=== PATIENT | male | born 1995 | race Caucasian/White ===

== ENCOUNTER 2016-05-04 07:23 | Inpatient (IN) | payer OTHER ==
[~2016-05-04] VITALS: Ht 177.8 cm; Wt 79.4 kg
[2016-05-04 13:15] VITALS: BP 115/83
[2016-05-04] MEDS ORDERED: diphenhydrAMINE 50 MG CAPSULE PO PRN (14:15)
[2016-05-04] MEDS ORDERED: LOPERAMIDE HCL 2 MG CAPSULE PO PRN ×2 (14:15)
[2016-05-04] MEDS ORDERED: MAGNESIUM HYDROXIDE 30 ML LIQUID UDC PO PRN (14:15)
[2016-05-04] MEDS ORDERED: CLONIDINE HCL 0.1 MG TABLET PO PRN (14:15)
[2016-05-04] MEDS ORDERED: ONDANSETRON ODT 4 MG TAB.RAPDIS SL PRN (14:15)
[2016-05-04] MEDS ORDERED: DICYCLOMINE HCL 20 MG TABLET PO PRN (14:15)
[2016-05-04] MEDS ORDERED: PROMETHAZINE HCL 25 MG/1 ML VIAL IM PRN (14:15)
[2016-05-04] MEDS ORDERED: ACETAMINOPHEN 325 MG TABLET PO PRN (14:15)
[2016-05-04] MEDS ORDERED: HYDROXYZINE PAMOATE 25 MG CAPSULE PO PRN (14:15)
[2016-05-04] MEDS ORDERED: MIRALAX 17 GM POWD.PACK PO PRN (14:15)
[2016-05-04] MEDS ORDERED: BUPRENORPHINE HCL 2 MG TAB.SUBL SL PRN (14:15)
[2016-05-04] MEDS ORDERED: LORAZEPAM 1 MG TABLET PO PRN ×2 (14:30)
[2016-05-04] MEDS ORDERED: LORAZEPAM 2 MG/1 ML VIAL IM PRN (14:30)
[2016-05-04] MEDS ORDERED: QUET100T PO (14:46)
[2016-05-04 15:59] LABS: *AMPHETAMINE, URINE POSITIVE (NEGATIVE); *BARBITURATE, URINE NEGATIVE (NEGATIVE); *CANNABINOID, URINE POSITIVE (NEGATIVE); *COCCAINE, URINE NEGATIVE (NEGATIVE); *OPIATE, URINE POSITIVE (NEGATIVE); *PHENCYCLIDINE SCREEN,URINE NEGATIVE (NEGATIVE)
[2016-05-04 16:03] LABS: BASOPHILS # (AUTO) 0.1 K/uL (0.0-0.2); BASOPHILS % (AUTO) 0.5 % (0.0-2.0); EOSINOPHILS # (AUTO) 0.2 K/uL (0.0-0.7); EOSINOPHILS % (AUTO) 1.5 % (0.0-7.0); HEMATOCRIT 42.9 % (40.0-50.0); HEMOGLOBIN 14.3 g/dL (14.0-18.0); LYMPHOCYTES # (AUTO) 1.5 K/uL (0.8-4.8); MEAN CORPUSCULAR HEMOGLOBIN 26.9 uug (27.0-31.0); MEAN CORPUSCULAR HGB CONC 33 g/dL (32.0-37.0); MEAN CORPUSCULAR VOLUME 80.5 fL (82.0-92.0); MONOCYTES # (AUTO) 1.1 K/uL (0.1-1.30); MONOCYTES % (AUTO) 8.2 % (0.0-11.0); NEUTROPHILS # (AUTO) 10.5 K/uL (1.8-8.9); NEUTROPHILS % (AUTO) 78.8 % (38.5-71.5); PLATELET COUNT (AUTO) 195 K/uL (150-450); RED BLOOD CELL COUNT(AUTO) 5.32 MIL/uL (4.70-6.10); WHITE BLOOD COUNT (AUTO) 13.4 K/uL (4.0-11.2)
[2016-05-04 16:14] LABS: ALANINE AMINOTRANSFERASE 54 U/L (16-63); ALBUMIN 4.2 g/dL (3.4-5.0); ALKALINE PHOSPHATASE 72 U/L (50-136); ASPARTATE AMINOTRANSFERASE 145 U/L (15-37); BILIRUBIN,TOTAL 1.2 mg/dL (0.2-1.0); CALCIUM 8.8 mg/dL (8.5-10.1); CARBON DIOXIDE 32 mmol/L (21-32); CHLORIDE 99 mmol/L (98-107); CREATININE 1.1 mg/dL (0.6-1.3); GFR 85 mL/min (>60); GLUCOSE 72 mg/dL (74-106); MAGNESIUM 1.5 mg/dL (1.8-2.4); POTASSIUM 3.7 mmol/L (3.5-5.1); SODIUM SERUM 140 mmol/L (136-145); TOTAL PROTEIN, SERUM 7.8 g/dL (6.4-8.2); UREA NITROGEN, BLOOD 13 mg/dL (7-18)
[2016-05-04] MEDS ORDERED: GABAPENTIN 300 MG CAPSULE PO SCH (16:15)
[2016-05-04 16:23] LABS: ETHANOL < 3 MG/DL (0-0)
[2016-05-04 16:25] LABS: THYROID STIMULATING HORMONE 0.276 mIU/mL (0.358-3.740)
[2016-05-04] MEDS ORDERED: MAGNESIUM OXIDE 400 MG TABLET PO ONE (16:45)
[2016-05-04] MEDS: METHOCARBAMOL 750 MG TABLET PO PRN (16:56)
[2016-05-04] MEDS: GABAPENTIN 300 MG CAPSULE PO SCH (16:56)
[2016-05-04] MEDS: ACYCLOVIR 400 MG TABLET PO SCH ×2 (17:00→21:46)
[2016-05-04 19:23] LABS: HIV-1 p24 ANTIGEN NON REACTIVE (NONREACTIVE); HIV-1/2 ANTIBODY NON REACTIVE (NONREACTIVE)
[2016-05-04 20:00] VITALS: BP 109/63
[2016-05-05] VITALS (8 sets, daily range): BP systolic 100–129; BP diastolic 58–82
[2016-05-05] MEDS: IBUPROFEN 600 MG TABLET PO PRN ×2 (01:07→16:39)
[2016-05-05] MEDS: ACYCLOVIR 400 MG TABLET PO SCH ×5 (06:24→20:18)
[2016-05-05 07:57] LABS: BASOPHILS % (AUTO) 0.4 % (0.0-2.0); EOSINOPHILS # (AUTO) 0.2 K/uL (0.0-0.7); EOSINOPHILS % (AUTO) 3.4 % (0.0-7.0); HEMATOCRIT 41.1 % (40.0-50.0); HEMOGLOBIN 13.6 g/dL (14.0-18.0); LYMPHOCYTES % (AUTO) 14.6 % (20.5-51.5); MEAN CORPUSCULAR HEMOGLOBIN 26.8 uug (27.0-31.0); MEAN CORPUSCULAR HGB CONC 33 g/dL (32.0-37.0); MEAN CORPUSCULAR VOLUME 80.8 fL (82.0-92.0); MONOCYTES # (AUTO) 0.8 K/uL (0.1-1.30); MONOCYTES % (AUTO) 12.6 % (0.0-11.0); NEUTROPHILS # (AUTO) 4.6 K/uL (1.8-8.9); PLATELET COUNT (AUTO) 142 K/uL (150-450); RED BLOOD CELL COUNT(AUTO) 5.08 MIL/uL (4.70-6.10); RED CELL DISTRIBUTION WIDTH 11.7 % (11.5-14.5); WHITE BLOOD COUNT (AUTO) 6.6 K/uL (4.0-11.2)
[2016-05-05 08:03] LABS: ALBUMIN 3.5 g/dL (3.4-5.0); BILIRUBIN,DIRECT 0.2 mg/dL (0.0-0.2); BILIRUBIN,TOTAL 0.7 mg/dL (0.2-1.0); CALCIUM 8.7 mg/dL (8.5-10.1); MAGNESIUM 2.1 mg/dL (1.8-2.4); PHOSPHOROUS 3.2 mg/dL (2.5-4.9); TOTAL PROTEIN, SERUM 6.8 g/dL (6.4-8.2)
[2016-05-05] MEDS ORDERED: 5 DAY TAPER BUPRENORPHINE -SERENITY PROTOCOL SL PRN (09:00)
[2016-05-05] MEDS ORDERED: TUBERCULIN,PURIF.PROT.DERIV. 5 TU/0.1 ML TEST ID ONE (09:00)
[2016-05-05] MEDS ORDERED: POTASSIUM CHLORIDE 20 MEQ TAB.PRT.SR PO ONE ×3 (10:15→12:45)
[2016-05-05] MEDS: MULTIVITAMINS,THERAPEUTIC TABLET PO SCH (10:17)
[2016-05-05] MEDS: BUPRENORPHINE HCL 2 MG TAB.SUBL SL SCH ×4 (10:17→20:16)
[2016-05-05] MEDS: GABAPENTIN 300 MG CAPSULE PO SCH ×2 (10:19→14:16)
[2016-05-05] MEDS: DOCUSATE SODIUM 250 MG CAPSULE PO SCH (10:19)
[2016-05-05] MEDS: LORAZEPAM 1 MG TABLET PO SCH ×4 (10:19→20:17)
[2016-05-05 11:39] LABS: HCV AB <0.1 s/co ratio (0.0-0.9); HEPATITIS B CORE AB, IgM Negative (Negative); HEPATITIS B SURFACE AG Negative (Negative)
[2016-05-05] MEDS ORDERED: MUPIROCIN 2% OINT 22 GM TUBE TP SCH (11:45)
[2016-05-05] MEDS ORDERED: SULFAMETH/TRIMETH 800/160 MG TABLET PO SCH (11:45)
[2016-05-05] MEDS: ACYCLOVIR 5% OINT 15 GM TUBE TP SCH ×2 (18:00→20:17)
[2016-05-05] MEDS: METHOCARBAMOL 750 MG TABLET PO PRN (20:17)
[2016-05-05] MEDS ORDERED: GABAPENTIN 300 MG CAPSULE PO SCH (21:00)
[2016-05-06] VITALS: BP 108/74
[2016-05-06] MEDS: IBUPROFEN 600 MG TABLET PO PRN ×2 (03:00→09:05)
[2016-05-06] MEDS: ACYCLOVIR 400 MG TABLET PO SCH ×5 (06:12→21:45)
[2016-05-06] MEDS: ACYCLOVIR 5% OINT 15 GM TUBE TP SCH ×5 (06:13→21:53)
[2016-05-06 08:00] VITALS: BP 109/60
[2016-05-06] MEDS: FLUOXETINE HCL 20 MG CAPSULE PO SCH (09:05)
[2016-05-06] MEDS: MULTIVITAMINS,THERAPEUTIC TABLET PO SCH (09:05)
[2016-05-06] MEDS: DOCUSATE SODIUM 250 MG CAPSULE PO SCH (09:05)
[2016-05-06] MEDS: LORAZEPAM 1 MG TABLET PO SCH ×3 (09:05→21:45)
[2016-05-06] MEDS: BUPRENORPHINE HCL 2 MG TAB.SUBL SL SCH ×3 (09:05→21:45)
[2016-05-06] MEDS: GABAPENTIN 300 MG CAPSULE PO SCH ×3 (09:05→21:44)
[2016-05-06 09:20] LABS: CALCIUM 8.8 mg/dL (8.5-10.1); POTASSIUM 3.8 mmol/L (3.5-5.1)
[2016-05-06] MEDS ORDERED: BENZOCAINE ORAL CARE 12 ML BOTTLE MM PRN (11:15)
[2016-05-06 12:00] VITALS: BP 130/78
[2016-05-06 16:00] VITALS: BP 103/63
[2016-05-06 20:00] VITALS: BP 114/69
[2016-05-06] MEDS ORDERED: GABAPENTIN 300 MG CAPSULE ONE (21:40)
[2016-05-07] VITALS: BP 105/63
[2016-05-07] MEDS: ACYCLOVIR 5% OINT 15 GM TUBE TP SCH ×5 (06:01→21:18)
[2016-05-07] MEDS: ACYCLOVIR 400 MG TABLET PO SCH ×5 (06:01→21:17)
[2016-05-07 08:00] VITALS: BP 121/76
[2016-05-07] MEDS ORDERED: BUPRENORPHINE HCL 2 MG TAB.SUBL SL SCH (09:00)
[2016-05-07] MEDS: GABAPENTIN 300 MG CAPSULE PO SCH ×3 (09:06→21:17)
[2016-05-07] MEDS: MULTIVITAMINS,THERAPEUTIC TABLET PO SCH (09:06)
[2016-05-07] MEDS: FLUOXETINE HCL 20 MG CAPSULE PO SCH (09:06)
[2016-05-07] MEDS: LORAZEPAM 1 MG TABLET PO SCH ×4 (09:07→21:16)
[2016-05-07] MEDS: MAG HYDROX/AL HYDROX/SIMETH 30 ML LIQUID UDC PO PRN ×2 (10:25→22:19)
[2016-05-07 12:00] VITALS: BP 129/82
[2016-05-07] MEDS ORDERED: BENZOCAINE/MENTH/CETYLPYRD LOZENGE MM PRN (15:15)
[2016-05-07] MEDS ORDERED: LIDOCAINE VISCUS 2% 15 ML UDC MM PRN (15:15)
[2016-05-07] MEDS: BUPRENORPHINE HCL 2 MG TAB.SUBL SL SCH ×2 (15:46→21:18)
[2016-05-07 16:00] VITALS: BP 130/87
[2016-05-07 20:00] VITALS: BP 117/75
[2016-05-08] MEDS: ACYCLOVIR 400 MG TABLET PO SCH ×5 (06:23→21:56)
[2016-05-08] MEDS: ACYCLOVIR 5% OINT 15 GM TUBE TP SCH ×5 (06:24→21:56)
[2016-05-08 08:00] VITALS: BP 117/74
[2016-05-08] MEDS: LORAZEPAM 1 MG TABLET PO SCH ×3 (09:40→21:55)
[2016-05-08] MEDS: FLUOXETINE HCL 20 MG CAPSULE PO SCH (09:40)
[2016-05-08] MEDS: BUPRENORPHINE HCL 2 MG TAB.SUBL SL SCH ×3 (09:40→21:56)
[2016-05-08] MEDS: GABAPENTIN 300 MG CAPSULE PO SCH ×3 (09:40→21:55)
[2016-05-08] MEDS: MULTIVITAMINS,THERAPEUTIC TABLET PO SCH (09:41)
[2016-05-08 12:00] VITALS: BP 134/84
[2016-05-08 16:00] VITALS: BP 128/88
[2016-05-08] MEDS: CALCIUM CARBONATE 500 MG TAB.CHEW PO PRN (18:56)
[2016-05-08 20:00] VITALS: BP 111/68
[2016-05-09] MEDS: ACYCLOVIR 400 MG TABLET PO SCH ×5 (06:31→21:39)
[2016-05-09] MEDS: ACYCLOVIR 5% OINT 15 GM TUBE TP SCH ×5 (06:32→21:40)
[2016-05-09 08:00] VITALS: BP 125/76
[2016-05-09] MEDS: MULTIVITAMINS,THERAPEUTIC TABLET PO SCH (08:56)
[2016-05-09] MEDS: LORAZEPAM 1 MG TABLET PO SCH ×2 (08:57→21:40)
[2016-05-09] MEDS: FLUOXETINE HCL 20 MG CAPSULE PO SCH (08:57)
[2016-05-09] MEDS: GABAPENTIN 300 MG CAPSULE PO SCH ×3 (08:57→21:40)
[2016-05-09] MEDS ORDERED: BUPRENORPHINE HCL 2 MG TAB.SUBL SL SCH (09:00)
[2016-05-09 12:00] VITALS: BP 118/78
[2016-05-09] MEDS: CALCIUM CARBONATE 500 MG TAB.CHEW PO PRN (15:27)
[2016-05-09 16:00] VITALS: BP 119/78
[2016-05-09 20:00] VITALS: BP 106/62
[2016-05-10] MEDS: ACYCLOVIR 400 MG TABLET PO SCH ×4 (06:01→17:41)
[2016-05-10] MEDS: ACYCLOVIR 5% OINT 15 GM TUBE TP SCH ×4 (06:01→17:41)
[2016-05-10 08:00] VITALS: BP 92/60
[2016-05-10] MEDS: MULTIVITAMINS,THERAPEUTIC TABLET PO SCH (09:24)
[2016-05-10] MEDS: FLUOXETINE HCL 20 MG CAPSULE PO SCH (09:24)
[2016-05-10] MEDS: GABAPENTIN 300 MG CAPSULE PO SCH ×3 (09:24→21:37)
[2016-05-10 12:00] VITALS: BP 116/76
[2016-05-10 16:00] VITALS: BP 110/55
[2016-05-10 18:32] LABS: *AMPHETAMINE, URINE NEGATIVE (NEGATIVE); *BARBITURATE, URINE NEGATIVE (NEGATIVE); *CANNABINOID, URINE NEGATIVE (NEGATIVE); *COCCAINE, URINE NEGATIVE (NEGATIVE); *OPIATE, URINE NEGATIVE (NEGATIVE)
[2016-05-10 18:51] LABS: *PHENCYCLIDINE SCREEN,URINE NEGATIVE (NEGATIVE)
[2016-05-10 20:00] VITALS: BP 113/62
[2016-05-11] MEDS ORDERED: Ibuprofen PO (00:29)
[2016-05-11] MEDS ORDERED: Gabapentin PO (00:29)
[2016-05-11] MEDS ORDERED: Fluoxetine Hcl PO (00:29)
[2016-05-11] MEDS ORDERED: DIPH50CA37 PO (00:29)
[2016-05-11] MEDS ORDERED: HYDR-3895 PO (00:29)
[2016-05-11] MEDS ORDERED: ACYC400T PO (00:29)
[2016-05-11 07:08] LABS: *CODEINE Positive (.); *HYDROMORPHONE Positive (.); *OPIATES Positive ng/mL (Cutoff=300)
[2016-05-11] MEDS: FLUOXETINE HCL 20 MG CAPSULE PO SCH (08:40)
[2016-05-11] MEDS: GABAPENTIN 300 MG CAPSULE PO SCH (08:40)
[2016-05-11] MEDS: MULTIVITAMINS,THERAPEUTIC TABLET PO SCH (08:41)
[2016-05-11] MEDS ORDERED: ACYCLOVIR 400 MG TABLET PO SCH (09:00)
== END 2016-05-11 09:55 | disposition other institution (70) | DRG 895 ==
LOC: SRC 12:33
PROVIDERS: ADMIT Internal Medicine; ATTEND Internal Medicine
PROC: HZ2ZZZZ Detoxification Services for Substance Abuse Treatment (ICD-10-PCS; principal; 2016-05-04)
PROC: HZ31ZZZ Individual Counseling for Substance Abuse Treatment, Behavioral (ICD-10-PCS; 2016-05-06)
PROC: HZ41ZZZ Group Counseling for Substance Abuse Treatment, Behavioral (ICD-10-PCS; 2016-05-07)
DX: F10.239 Alcohol dependence with withdrawal, unspecified (principal); E87.3 Alkalosis; F11.23 Opioid dependence with withdrawal; K70.10 Alcoholic hepatitis without ascites; Y90.9 Presence of alcohol in blood, level not specified; F12.90 Cannabis use, unspecified, uncomplicated; Z59.0 Homelessness; E83.42 Hypomagnesemia; E07.81 Sick-euthyroid syndrome; K13.0 Diseases of lips; B00.1 Herpesviral vesicular dermatitis; F32.9 Major depressive disorder, single episode, unspecified; E86.0 Dehydration; D69.6 Thrombocytopenia, unspecified; E87.6 Hypokalemia; F13.230 Sedative, hypnotic or anxiolytic dependence with withdrawal, uncomplicated; D50.9 Iron deficiency anemia, unspecified; F17.210 Nicotine dependence, cigarettes, uncomplicated; F15.10 Other stimulant abuse, uncomplicated; G25.81 Restless legs syndrome
CPT/HCPCS: 36415; 70030-TC; 80307; 80324; 80349; 80361; 83735; 84100; 84443; 85025; 86580; 86592; 86705; 86803; 87340; 87806; A4663; A9150; G6040-TC; Q0162